=== PATIENT | male | born 1950 | race Caucasian/White ===

== ENCOUNTER 2024-06-13 01:56 | Inpatient (IN) | payer MEDICARE, BC ==
[~2024-06-13] VITALS: Ht 172.7 cm; Wt 81.6 kg
[2024-06-13] MEDS ORDERED: MORPHINE SULFATE INJ 4 MG/ML DISP.SYRIN ONE (02:41)
[2024-06-13] MEDS ORDERED: ACETAMINOPHEN ES 500 MG TABLET ONE (02:42)
[2024-06-13] MEDS: MORPHINE SULFATE INJ 2 MG/ML DISP.SYRIN IV ONE (02:45)
[2024-06-13 02:51] LABS: ERYTHROCYTE SEDIMENTATION RATE 27 MM/HR (0-20)
[2024-06-13 02:54] LABS: BASOPHILS % (AUTO) 0.3 % (0.0-2.0); HEMATOCRIT 21 % (39-51); HEMOGLOBIN 7.6 g/dL (13.5-17.5); LYMPHOCYTES # (AUTO) 0.3 K/uL (0.8-4.8); LYMPHOCYTES % (AUTO) 3.1 % (20.0-44.0); MEAN CORPUSCULAR HEMOGLOBIN 31 PG (26.0-33.0); MEAN CORPUSCULAR HGB CONC 36 g/dl (31.0-36.0); MEAN CORPUSCULAR VOLUME 87 fL (80-96); MONOCYTES # (AUTO) 0.5 K/uL (0.1-1.30); MONOCYTES % (AUTO) 6.4 % (2.0-12.0); NEUTROPHILS # (AUTO) 7.6 K/uL (1.8-8.9); NEUTROPHILS % (AUTO) 90.2 % (43.0-81.0); PLATELET COUNT (AUTO) 86 K/uL (150-450); RED BLOOD CELL COUNT(AUTO) 2.43 MIL/uL (4.5-6.0); RED CELL DISTRIBUTION WIDTH 15.2 % (11.5-15.0); WHITE BLOOD COUNT (AUTO) 8.4 K/uL (4.3-11.0)
[2024-06-13 02:56] LABS: CARBON DIOXIDE 23 mmol/L (21-32); CHLORIDE 95 mmol/L (98-107); GLUCOSE 222 mg/dL (74-106); SODIUM SERUM 130 mmol/L (136-145); UREA NITROGEN, BLOOD 35 mg/dL (7-18)
[2024-06-13 02:59] LABS: C-REACTIVE PROTEIN > 25.00 mg/dL (0.0-0.30)
[2024-06-13] MEDS: ACETAMINOPHEN ES 500 MG TABLET PO ONE (03:03)
[2024-06-13 03:18] LABS: ANISOCYTOSIS 1+; BAND % (MANUAL) 3 % (0.0-5.0); LYMPHOCYTES % (MANUAL) 2 % (16-48); MONOCYTES % (MANUAL) 4 % (0-11.0); NEUTROPHILS % (MANUAL) 91 (42-76); PLATELET ESTIMATE DECREASED
[2024-06-13] MEDS: IV NS 0.9% 1,000 ML BAG IV ONE (03:30)
[2024-06-13] MEDS ORDERED: HYDROMORPHONE 1 MG/1 ML DISP.SYRIN ONE (04:22)
[2024-06-13] MEDS: HYDROMORPHONE 1 MG/1 ML DISP.SYRIN IV STA (04:26)
[2024-06-13] MEDS ORDERED: MAGNESIUM HYDROXIDE 30 ML UDC PO PRN (04:30)
[2024-06-13] MEDS ORDERED: MAG HYDROX/AL HYDROX/SIMETH 30 ML UDC PO PRN (04:30)
[2024-06-13 04:46] VITALS: BP 108/62; TEMP 97.7; O2SAT 99
[2024-06-13] MEDS: ONDANSETRON HCL/PF 4 MG/2 ML VIAL IVP PRN (05:25)
[2024-06-13 07:30] VITALS: BP 110/64; TEMP 98.6; O2SAT 100
[2024-06-13] MEDS: CEFTRIAXONE 1 G in IV D5W 50 ML IV SCH (09:00)
[2024-06-13] MEDS: VANCOMYCIN 1.5 GM in IV D5W 500 ML IV ONE (09:58)
[2024-06-13] MEDS ORDERED: GUAI120S42 PO (12:17)
[2024-06-13] MEDS ORDERED: ATOVAQUONE PO (12:17)
[2024-06-13] MEDS ORDERED: CETI-90 PO (12:17)
[2024-06-13] MEDS ORDERED: ACYC400T19 PO (12:17)
[2024-06-13 12:59] LABS: THYROID STIMULATING HORMONE 2.67 uIU/mL (0.358-3.74)
[2024-06-13 13:37] LABS: ALBUMIN 3.1 g/dL (3.4-5.0); BILIRUBIN,DIRECT 0.3 mg/dL (0.0-0.2); BILIRUBIN,TOTAL 0.9 mg/dL (0.2-1.0); TOTAL PROTEIN, SERUM 6.8 g/dL (6.4-8.2)
[2024-06-13 14:26] LABS: CALCIUM, SERUM 9.8 mg/dL (8.5-10.1); CARBON DIOXIDE 22 mmol/L (21-32); CHLORIDE 98 mmol/L (98-107); CREATININE 1.7 mg/dL (0.6-1.3); GLUCOSE 224 mg/dL (74-106); POTASSIUM 4.6 mmol/L (3.5-5.1); SODIUM SERUM 132 mmol/L (136-145); UREA NITROGEN, BLOOD 39 mg/dL (7-18)
[2024-06-13 16:00] VITALS: BP 100/62; TEMP 97.3; O2SAT 98
[2024-06-13] MEDS: ATOVAQUONE SUSP 750 MG/5 ML PACKET PO SCH (16:00)
[2024-06-13 17:10] LABS: APPEARANCE,URINE CLEAR (CLEAR); BILIRUBIN,URINE NEGATIVE (NEGATIVE); BLOOD, URINE NEGATIVE Ery/uL (NEGATIVE); COLOR,URINE YELLOW (YELLOW); KETONES,URINE NEGATIVE (NEGATIVE); LEUKOCYTE ESTERASE ,URINE NEGATIVE (NEGATIVE); NITRITE, URINE NEGATIVE (NEGATIVE); PROTEIN,URINE NEGATIVE (NEGATIVE); UGLUCOSE NEGATIVE (NEGATIVE); UROBILINOGEN,URINE 0.2 EU/dL (0.2)
[2024-06-13 17:43] LABS: EOSINOPHIL,URINE None Seen
[2024-06-13] MEDS: ACETAMINOPHEN 325 MG TABLET PO PRN (18:41)
[2024-06-13 20:38] VITALS: BP 119/66; TEMP 100.4; O2SAT 97
[2024-06-13] MEDS: VANCOMYCIN 1 GM in IV D5W 250ml IV SCH (22:25)
[2024-06-13 23:29] VITALS: BP 119/66; TEMP 100.4; O2SAT 97
[2024-06-14] VITALS (7 sets, daily range): BP systolic 96–117; BP diastolic 57–87; TEMP 97.9–98.6; O2SAT 98–100
[2024-06-14 06:39] LABS: BASOPHILS % (AUTO) 0.2 % (0.0-2.0); EOSINOPHILS % (AUTO) 0.3 % (0.0-6.0); HEMOGLOBIN 7.3 g/dL (13.5-17.5); LYMPHOCYTES # (AUTO) 0.4 K/uL (0.8-4.8); LYMPHOCYTES % (AUTO) 7.7 % (20.0-44.0); MEAN CORPUSCULAR HEMOGLOBIN 32 PG (26.0-33.0); MEAN CORPUSCULAR HGB CONC 37 g/dl (31.0-36.0); MEAN CORPUSCULAR VOLUME 87 fL (80-96); MONOCYTES # (AUTO) 0.4 K/uL (0.1-1.30); MONOCYTES % (AUTO) 7.2 % (2.0-12.0); NEUTROPHILS # (AUTO) 4.7 K/uL (1.8-8.9); NEUTROPHILS % (AUTO) 84.6 % (43.0-81.0); PLATELET COUNT (AUTO) 71 K/uL (150-450); RED BLOOD CELL COUNT(AUTO) 2.29 MIL/uL (4.5-6.0); WHITE BLOOD COUNT (AUTO) 5.6 K/uL (4.3-11.0)
[2024-06-14 06:46] LABS: HEMATOCRIT 20 % (39-51)
[2024-06-14 06:47] LABS: ALANINE AMINOTRANSFERASE 12 U/L (12-78); ALBUMIN 2.7 g/dL (3.4-5.0); ALKALINE PHOSPHATASE 68 U/L (46-116); ASPARTATE AMINOTRANSFERASE 14 U/L (15-37); BILIRUBIN,TOTAL 0.7 mg/dL (0.2-1.0); CALCIUM, SERUM 9.1 mg/dL (8.5-10.1); CARBON DIOXIDE 24 mmol/L (21-32); CHLORIDE 99 mmol/L (98-107); CREATININE 1.4 mg/dL (0.6-1.3); GLUCOSE 164 mg/dL (74-106); MAGNESIUM 2.2 mg/dL (1.8-2.4); PHOSPHORUS 3.7 mg/dL (2.5-4.9); POTASSIUM 4.4 mmol/L (3.5-5.1); SODIUM SERUM 134 mmol/L (136-145); TOTAL PROTEIN, SERUM 6.4 g/dL (6.4-8.2); UREA NITROGEN, BLOOD 30 mg/dL (7-18)
[2024-06-14 07:01] LABS: CREATINE KINASE, TOTAL 138 U/L (39-308)
[2024-06-14 08:18] LABS: BAND % (MANUAL) 3 % (0.0-5.0); LYMPHOCYTES % (MANUAL) 7 % (16-48); MONOCYTES % (MANUAL) 7 % (0-11.0); NEUTROPHILS % (MANUAL) 83 (42-76)
[2024-06-14 08:20] LABS: ANISOCYTOSIS 1+; OVALOCYTES 1+; PLATELET ESTIMATE DECREASED
[2024-06-14] MEDS: CEFTRIAXONE 2 G in IV D5W 100 ML IV SCH (08:23)
[2024-06-14] MEDS ORDERED: MORPHINE SULFATE INJ 2 MG/ML DISP.SYRIN IV PRN (10:00)
[2024-06-14 11:08] LABS: FOLIC ACID 7.9 ng/mL (>3.0)
[2024-06-14] MEDS: HYDROCODONE/APAP 5/325MG TABLET PO PRN (11:12)
[2024-06-14 14:54] LABS: HIV-1 p24 ANTIGEN NON REACTIVE (NONREACTIVE); HIV-1/2 ANTIBODY NON REACTIVE (NONREACTIVE)
[2024-06-14] MEDS: VANCOMYCIN HCL 1.25 GM in IV D5W 250 ML IV SCH (20:01)
[2024-06-15 07:06] LABS: CALCIUM, SERUM 9.4 mg/dL (8.5-10.1); CARBON DIOXIDE 21 mmol/L (21-32); CHLORIDE 97 mmol/L (98-107); CREATININE 1.2 mg/dL (0.6-1.3); GLUCOSE 172 mg/dL (74-106); POTASSIUM 4.7 mmol/L (3.5-5.1); SODIUM SERUM 130 mmol/L (136-145); UREA NITROGEN, BLOOD 23 mg/dL (7-18)
[2024-06-15 07:30] VITALS: BP 105/66; TEMP 98.2; O2SAT 99
[2024-06-15 08:07] LABS: PTH, INTACT 36 pg/mL (15-65)
[2024-06-15 09:10] LABS: BASOPHILS % (AUTO) 0.4 % (0.0-2.0); EOSINOPHILS % (AUTO) 0.5 % (0.0-6.0); HEMOGLOBIN 7.1 g/dL (13.5-17.5); LYMPHOCYTES # (AUTO) 0.7 K/uL (0.8-4.8); LYMPHOCYTES % (AUTO) 15.2 % (20.0-44.0); MEAN CORPUSCULAR HEMOGLOBIN 31 PG (26.0-33.0); MEAN CORPUSCULAR HGB CONC 36 g/dl (31.0-36.0); MEAN CORPUSCULAR VOLUME 88 fL (80-96); MONOCYTES # (AUTO) 0.3 K/uL (0.1-1.30); NEUTROPHILS # (AUTO) 3.3 K/uL (1.8-8.9); NEUTROPHILS % (AUTO) 75.9 % (43.0-81.0); PLATELET COUNT (AUTO) 69 K/uL (150-450); RED BLOOD CELL COUNT(AUTO) 2.25 MIL/uL (4.5-6.0); RED CELL DISTRIBUTION WIDTH 14.6 % (11.5-15.0); WHITE BLOOD COUNT (AUTO) 4.4 K/uL (4.3-11.0)
[2024-06-15 09:15] LABS: HEMATOCRIT 20 % (39-51)
[2024-06-15] MEDS: Z GUARD REMEDY 4 OZ OINT TP PRN (09:35)
[2024-06-15 11:27] LABS: BAND % (MANUAL) 3 % (0.0-5.0); LYMPHOCYTES % (MANUAL) 21 % (16-48); MONOCYTES % (MANUAL) 2 % (0-11.0); MYELOCYTES % 1 % (0-0); NEUTROPHILS % (MANUAL) 73 (42-76)
[2024-06-15 11:28] LABS: ANISOCYTOSIS 1+; OVALOCYTES 1+; PLATELET ESTIMATE DECREASED
[2024-06-15] MEDS: LIDOCAINE 5% (PATCH) 1 EA PATCH TP SCH (11:29)
[2024-06-15] MEDS ORDERED: HYDROCODONE/APAP 10/325MG TABLET PO PRN (11:30)
[2024-06-15 13:08] LABS: *SPE A/G RATIO 0.9 (0.7-1.7); *SPE ALBUMIN 2.7 g/dL (2.9-4.4); *SPE ALPHA-1-GLOBULIN 0.5 g/dL (0.0-0.4); *SPE ALPHA-2-GLOBULIN 1.1 g/dL (0.4-1.0); *SPE M-SPIKE Not Observed g/dL (Not Observed); *SPE PROTEIN TOTAL 5.7 g/dL (6.0-8.5); *SPEGAMMA GLOBULIN 0.5 g/dL (0.4-1.8)
[2024-06-15 16:00] VITALS: BP 109/60; TEMP 97.9; O2SAT 100
== END 2024-06-15 19:30 | disposition short-term general hospital (02) | DRG 551 ==
LOC: ER 01:58 → MED 03:23 → TELE 04:44 → MED 06-14 11:14
PROVIDERS: ADMIT Nurse Practitioner Acute Care; ATTEND Nurse Practitioner Acute Care
DX: M47.896 Other spondylosis, lumbar region (principal); N17.0 Acute kidney failure with tubular necrosis; E87.1 Hypo-osmolality and hyponatremia; C83.1A Mantle cell lymphoma, in remission; M46.46 Discitis, unspecified, lumbar region; M54.9 Dorsalgia, unspecified; R53.1 Weakness; D69.6 Thrombocytopenia, unspecified; M89.8X9 Other specified disorders of bone, unspecified site; M48.061 Spinal stenosis, lumbar region without neurogenic claudication; D63.8 Anemia in other chronic diseases classified elsewhere; Z20.822 Contact with and (suspected) exposure to COVID-19; E86.9 Volume depletion, unspecified; N18.9 Chronic kidney disease, unspecified; R16.0 Hepatomegaly, not elsewhere classified; Z85.72 Personal history of non-Hodgkin lymphomas; Z92.21 Personal history of antineoplastic chemotherapy; R91.8 Other nonspecific abnormal finding of lung field; R93.5 Abnormal findings on diagnostic imaging of other abdominal regions, including retroperitoneum; K76.89 Other specified diseases of liver; K86.89 Other specified diseases of pancreas
CPT/HCPCS: 36415; 71045-TC; 71250-TC; 72131-TC; 72148-TC; 76770-TC; 80048-TC; 80053-TC; 80061-TC; 80076-TC; 82550-TC; 82570-TC; 82607-TC; 83735-TC; 83921; 83970; 84100-TC; 84155; 84165; 84300-TC; 84425; 84443-TC; 85025-TC; 85652-TC; 86140-TC; 86803; 87040-TC; 87086-TC; 87806; 93307-TC; 97110-TC; 97112-TC; 97116-TC; 97530-TC; 97535-TC; A4223; G0378; J0696; J1171; J2270; J2405; J3370; J3371; J7030; J7050; J7060